=== PATIENT | female | born 1940 | race Caucasian/White ===

== ENCOUNTER → 2019-04-19 | Outpatient (CLI) | payer OTHER ==
[~2019-04-19] VITALS: Ht 170.2 cm; Wt 108.9 kg
[~2019-04-19] MED LIST: DILTIAZEM 24HR240 M1 PO; FOSAMAX 70 MG T70 MG PO; LEVO-T50 MCG PO; SIMVASTATIN40 MG PO; TOPROL XL100 MG PO; TORSEMIDE20 MG PO; VITAMIN D35000 UNI2 PO; XARELTO20 MG PO
[2019-04-19 07:12] VITALS: BP 155/91
[2019-04-19 07:39] LABS: HEMATOCRIT 45.8 % (37.0-47.0); MCH 31.3 pg (26.0-34.0); MCHC 32.8 g/dL (28.0-37.0); MCV 95.2 fL (80.0-100.0); RBC 4.8 mil/uL (4.20-5.00); RDW 14.5 % (10.5-14.5); WBC 9.4 thou/uL (4.0-11.0)
[2019-04-19 07:51] LABS: CALCIUM 10.2 mg/dL (8.5-10.1); CREATININE 1.1 mg/dL (0.6-1.0); POTASSIUM 4.2 mmol/L (3.5-5.1)
--- NOTE | 2019-04-19 15:04 | EKG ---
[place] [address] [place] [address] ELECTROCARDIOGRAM REPORT Name: BENITA ROSENBAUM Room #: [facility]#: [id number] Admission: 04/19/19 Attend Phys: Tito Bueno MD, Discharge: Date of : 36 Report #: [id number] THIS REPORT FOR: //name// [facility] Test Date: 2019-04-19 Test Time: 07:15:17 Pat Name: BENITA ROSENBAUM Department: Room: Gender: F Workforce Services Representative: Ruba HOPE : 1940 Requested By: Tito Bueno Order Number: [id number] MD: Mingo Brown Measurements Intervals [place] Rate: 113 P: MT: QRS: 9 QRSD: 89 T: 49 QT: 338 QTc: 464 Interpretive Statements Atrial fibrillation Ventricular premature complex Borderline low voltage, extremity leads Minimal ST depression, lateral leads No previous ECG available for comparison Electronically Signed On 04-19-2019 15:04:18 HITCHER by Mingo Brown [email or web address] <ELECTRONICALLY SIGNED> By: Mingo Brown MD 04/19/19 1504 4 4 Mingo Brown MD /DIANDRA
--- NOTE | 2019-04-19 20:13 | CATHLAB ---
[facility] [address] [place] [address] INVASIVE PROCEDURE REPORT Name: BENITA ROSENBAUM [id number] Admission: 04/19/19 Attend Phys: Tito Bueno, Discharge: Date of : 36 Report #: [id number] THIS REPORT FOR: //name// APPROVED REPORT Study performed: 04/19/2019 09:13:47 Patient Details Patient Status: Out-Patient Room #: The patient is a 78 year-old female Event Personnel Tito Bueno Mammography Tech, Jenise Ferraro RN RN, Madi Shea RTR Terry Hernandez David Monitor Procedures Performed Right and Left Heart Cath w/or w/o Coronarie [id number] [facility] Aortogram Abdominal Peripheral Angio [id number] Indication Chest pain Procedure Narrative The Right Groin^ was infiltrated with 1% Lidocaine subcutaneous anesthesia. A PINNACLE 6FR Sheath #[id number] sheath was inserted into the RFA^. Coronary angiography was performed using coronary diagnostic catheters. The right coronary system was accessed and visualized with a JR4 catheter. The left coronary system was accessed and visualized with a JL4 catheter. The left ventricle was accessed and visualized with a PIGTAIL catheter. Left ventricular/Aortic Valve gradient assessed via catheter pullback. Left ventriculogram was performed in 30 degree projection. An aortogram of the abdominal aorta was performed. Closure device was deployed with a 6 Fr MYNXGRIP 6/7F #[id number]. The patient tolerated the procedure well and there were no complications associated with the procedure. There was no hematoma. Intraoperative Conscious Sedation Sedation start time: 9.47 Case end Time: 10.17 Fentanyl 50 mcg Versed 1 mg Fluoro Time: 1.32 minutes Dose: DAP 4244.00 cGycm2 435 mGy Contrast Type and Amount: Visipaque 115 ml [facility] [address] [place] [address] INVASIVE PROCEDURE REPORT Name: BENITA ROSENBAUM Room #: [facility]#: [id number] Admission: 04/19/19 Attend Phys: Tito Bueno, Discharge: Date of : 36 Report #: [id number] Hemodynamics The right atrial mean pressure is 19 mmHg. The right ventricular pressure is 48/1 mmHg. The pulmonary artery pressure is 44/21 mmHg with a mean of 31 mmHg. The aortic pressure is 151/98 mmHg with a mean of 119 mmHg. The left ventricular pressure is 153/15 mmHg with a mean of mmHg. The left ventricular end diastolic pressure is 21 mmHg. There was no gradient across the aortic valve upon pullback. Pullback from the left ventricle to the aorta revealed no gradient across the aortic valve. The cardiac output using thermo method is 4.25 L/min. Conclusion #1 successful right heart catheterization with cardiac output by thermodilution. See above hemodynamics. #2 normal left ventricular size with mild global LV dysfunction EF 45-50% range. #3 abdominal aortogram reveals normal caliber abdominal aorta no aneurysm formation. Iliac system widely patent. #4 large left main free of disease giving rise to LAD and circumflex #5 LAD extends to the apex with mild distal disease no occlusive disease is noted. Type I LAD #6 circumflex OM is a large system to small high rising OM branch is widely patent large distal OM widely patent. #7 large dominant right coronary artery with mild irregularity proximal mid vessel no occlusive disease PDA YAHAIRA widely patent. Recognitions and plan: Continue aggressive risk factor modification. No indication for coronary intervention. We will increase diuresis. Recover CV holding area discharge protocol. Follow-up will be arranged. <ELECTRONICALLY SIGNED> By: Tito Bueno MD, FACC 04/19/192012 12 12 Tito Bueno MD, FACC /INF
== END | disposition home or self-care (01) ==
LOC: CATH 06:33
PROVIDERS: Internal Medicine Cardiovascular Disease
DX: R07.9 Chest pain, unspecified (principal); I25.10 Atherosclerotic heart disease of native coronary artery without angina pectoris; I10 Essential (primary) hypertension; E78.00 Pure hypercholesterolemia, unspecified; I48.91 Unspecified atrial fibrillation; I42.9 Cardiomyopathy, unspecified; Z98.890 Other specified postprocedural states; Z79.01 Long term (current) use of anticoagulants; Z79.899 Other long term (current) drug therapy; Z82.49 Family history of ischemic heart disease and other diseases of the circulatory system

== ENCOUNTER → 2019-05-21 | Outpatient (CLI) | payer OTHER | LOC: SJCVC 10:52 | DX: I21.29 ST elevation (STEMI) myocardial infarction involving other sites (principal); R94.31 Abnormal electrocardiogram [ECG] [EKG]; I48.91 Unspecified atrial fibrillation; I10 Essential (primary) hypertension; E78.00 Pure hypercholesterolemia, unspecified; I42.9 Cardiomyopathy, unspecified ==

== ENCOUNTER → 2020-06-26 | Outpatient (CLI) | payer OTHER | LOC: SJCVC 11:11 | PROVIDERS: ATTEND Internal Medicine Cardiovascular Disease | DX: Z01.818 Encounter for other preprocedural examination (principal); I48.91 Unspecified atrial fibrillation; I49.3 Ventricular premature depolarization; R94.31 Abnormal electrocardiogram [ECG] [EKG]; I10 Essential (primary) hypertension; I42.9 Cardiomyopathy, unspecified; E78.00 Pure hypercholesterolemia, unspecified; R06.00 Dyspnea, unspecified; Z79.899 Other long term (current) drug therapy ==

== ENCOUNTER → 2020-09-28 | Outpatient (CLI) | payer OTHER | LOC: SJCVCIMAG 07:41 | PROVIDERS: ATTEND Internal Medicine Cardiovascular Disease | DX: I07.1 Rheumatic tricuspid insufficiency (principal); I48.91 Unspecified atrial fibrillation; E78.00 Pure hypercholesterolemia, unspecified; I42.9 Cardiomyopathy, unspecified; E78.5 Hyperlipidemia, unspecified; I10 Essential (primary) hypertension; R06.00 Dyspnea, unspecified; Z79.899 Other long term (current) drug therapy ==

== ENCOUNTER → 2021-05-10 | Outpatient (CLI) | payer OTHER | LOC: SJCVC 11:33 | PROVIDERS: ATTEND Internal Medicine Cardiovascular Disease | DX: E78.5 Hyperlipidemia, unspecified (principal); I10 Essential (primary) hypertension; I48.91 Unspecified atrial fibrillation; D68.59 Other primary thrombophilia; I42.9 Cardiomyopathy, unspecified; R94.31 Abnormal electrocardiogram [ECG] [EKG]; I27.20 Pulmonary hypertension, unspecified; I38 Endocarditis, valve unspecified; I25.10 Atherosclerotic heart disease of native coronary artery without angina pectoris; Z79.899 Other long term (current) drug therapy ==